=== PATIENT | male | born 1995 | race Caucasian/White ===

== ENCOUNTER 2022-10-04 12:24 | Emergency (ER) | payer SELFPAY ==
[~2022-10-04] VITALS: Ht 162.6 cm; Wt 54.1 kg
[2022-10-04 12:50] LABS: BASOPHILS % 0.7 % (0.0-2.0); EOSINOPHILS % 2.9 % (0.0-5.0); HEMATOCRIT. 44.4 % (42.0-52.0); HEMOGLOBIN. 15.5 g/dL (14.0-18.0); LYMPHOCYTES % 32.4 % (20.0-50.0); MEAN CORPUSCULAR HEMOGLOBIN 32.8 pg (28.0-32.0); MEAN PLATELET VOLUME 8.3 fl (7.4-10.4); MONOCYTES % 10.3 % (2.0-8.0); NEUTROPHILS % 53.7 % (40.0-76.0); PLATELET 171 x1000/uL (130-400); RED BLOOD CELL COUNT 4.73 mill/uL (4.7-6.1); RED CELL DISTRIBUTION WIDTH 12.7 % (11.6-14.6)
[2022-10-04 13:00] LABS: CHLORIDE 108 mEq/L (98-107)
[2022-10-04] MEDS ORDERED: KETOROLAC 15MG/ML VIAL IV ONE (13:15)
[2022-10-04] MEDS ORDERED: ONDANSETRON HCL 4MG/2ML INJ IV ONE (13:15)
[2022-10-04 14:20] VITALS: BP 117/72
[2022-10-04] MEDS ORDERED: IBUP-2029 MT (14:51)
== END 2022-10-04 15:35 | disposition home or self-care (01) ==
LOC: ER 12:24
DX: K42.9 Umbilical hernia without obstruction or gangrene (principal); Z00.00 Encounter for general adult medical examination without abnormal findings
CPT/HCPCS: 36415; 74176; 80053; 85025; 96374; 96375; 99285; J1885; J2405